=== PATIENT | male | born 1965 | race Caucasian/White ===

== ENCOUNTER 2017-10-19 14:38 | Inpatient (IN) | payer MEDICARE, OTHER ==
[2017-10-19 15:18] LABS: ADD MAN DIFF? NO
[2017-10-19 15:21] LABS: ABNORMAL IP MESSAGE 1; HEMOGLOBIN 14.5 g/dl (14.0-18.0); MEAN CORPUSCULAR HEMOGLOBIN 31.9 pg (29.0-33.0); POSITIVE DIFF @See below; RED BLOOD COUNT 4.55 10^6/ul (4.70-6.10); RED CELL DISTRIBUTION WIDTH 13.5 % (11.5-14.5)
[2017-10-19 15:34] LABS: HEMATOCRIT 41.2 % (42.0-52.0); MEAN CORPUSCULAR HGB CONC 35.2 g/dl (32.0-37.0); MEAN CORPUSCULAR VOLUME 90.5 fl (82.0-101.0); MEAN PLATELET VOLUME 11.1 fl (7.4-10.4); PLATELET COUNT 241 10^3/UL (140-415)
[2017-10-19 15:34] LABS: WHITE BLOOD COUNT 23.1 10^3/ul (4.8-10.8)
[2017-10-19 15:40] LABS: ALANINE AMINOTRANSFERASE 27 IU/L (13-69); ALBUMIN 4.6 g/dl (3.3-4.9); ALBUMIN/GLOBULIN RATIO 1.64; ALKALINE PHOSPHATASE 55 IU/L (42-121); ANION GAP 22 (8-16); ASPARTATE AMINO TRANSFERASE 24 IU/L (15-46); BILIRUBIN,INDIRECT 0.6 mg/dl (0-1.1); BILIRUBIN,TOTAL 0.6 mg/dl (0.2-1.3); BLOOD UREA NITROGEN 38 mg/dl (7-20); CALCIUM 11.6 mg/dl (8.4-10.2); CARBON DIOXIDE 24 mmol/L (21-31); CHLORIDE 100 mmol/L (97-110); CREATININE 3.43 mg/dl (0.61-1.24); GLUCOSE 148 mg/dl (70-220); LIPASE 25 U/L (23-300); POTASSIUM 3.3 mmol/L (3.5-5.1); SODIUM 143 mmol/L (135-144); TOTAL PROTEIN 7.4 g/dl (6.1-8.1)
[2017-10-19 15:52] LABS: TROPONIN-I < 0.012 ng/ml (0.00-0.12)
[2017-10-19] MEDS: ONDANSETRON 4 MG INJ IV (16:00)
[2017-10-19] MEDS: SOD CHLORIDE 0.9% 1,000 ML IV (16:00)
[2017-10-19 16:14] LABS: ANISOCYTOSIS 1+ (0-0); BAND NEUTROPHILS #M 1.1 10^3/ul (0.0-0.6); BAND NEUTROPHILS % (M) 5 % (0-4); GIANT THROMBO% (M) 1 % (0-0); LYMPHOCYTES #M 0.6 10^3/ul (0.8-2.9); LYMPHOCYTES % (M) 3 % (15-51); MICROCYTOSIS 1+ (0-0); MONOCYTE #M 2.7 10^3/ul (0.3-0.9); MONOCYTES % (M) 12 % (0-11); PLATELET ESTIMATE NORMAL; REACTIVE LYMPHOCYTES #M 1.1 10^3/ul (0.0-0.0); REACTIVE LYMPHOCYTES% (M) 5 % (0-0); SEG NEUT #M 17.6 10^3/ul (1.6-7.5); SEGMENTED NEUTROPHILS (M) % 75 % (39-77); SMUDGE%M 2 % (0-0)
[2017-10-19] MEDS: METOCLOPRAMIDE 10 MG INJ IV (17:11)
[2017-10-19] MEDS: LIDOCAINE/MYLANTA 40 ML BTL PO (19:45)
[2017-10-19] MEDS: MYCOPHENOLATE (SR) 180 MG TAB PO ×2 (21:30→23:07)
[2017-10-19] MEDS: TACROLIMUS 1 MG CAP PO ×2 (21:30→23:08)
[2017-10-19] MEDS: DEXTROSE 5%-0.9% NACL 1,000 ML IV (21:46)
[2017-10-20] MEDS: ALPRAZOLAM 0.5 MG TAB PO ×3 (00:06→22:40)
[2017-10-20] MEDS: PANTOPRAZOLE (EC) 40 MG TAB PO (05:21)
[2017-10-20 07:17] LABS: ADD MAN DIFF? NO
[2017-10-20 07:22] LABS: ABNORMAL IP MESSAGE 1; BASOPHIL # 0.1 10^3/ul (0.0-0.1); BASOPHILS % 0.3 % (0.0-2.0); EOSINOPHILS % 0.1 % (0.0-7.0); HEMATOCRIT 37.1 % (42.0-52.0); HEMOGLOBIN 12.9 g/dl (14.0-18.0); LYMPHOCYTES # 1.9 10^3/ul (0.8-2.9); MEAN CORPUSCULAR HGB CONC 34.8 g/dl (32.0-37.0); MEAN CORPUSCULAR VOLUME 92.1 fl (82.0-101.0); MEAN PLATELET VOLUME 11.2 fl (7.4-10.4); MONOCYTE # 1.7 10^3/ul (0.3-0.9); NEUTROPHIL # 13.5 10^3/ul (1.6-7.5); NEUTROPHILS % 78.1 % (39.0-77.0); PLATELET COUNT 198 10^3/UL (140-415); POSITIVE DIFF @See below; RED BLOOD COUNT 4.03 10^6/ul (4.70-6.10); RED CELL DISTRIBUTION WIDTH 13.5 % (11.5-14.5)
[2017-10-20 07:22] LABS: WHITE BLOOD COUNT 17.3 10^3/ul (4.8-10.8)
[2017-10-20 07:47] LABS: ANION GAP 12 (8-16); BLOOD UREA NITROGEN 30 mg/dl (7-20); CALCIUM 9.2 mg/dl (8.4-10.2); CARBON DIOXIDE 27 mmol/L (21-31); CHLORIDE 104 mmol/L (97-110); CREATININE 1.95 mg/dl (0.61-1.24); GLUCOSE 129 mg/dl (70-220); MAGNESIUM 1.3 mg/dl (1.7-2.5); PHOSPHORUS 2.9 mg/dl (2.5-4.9); POTASSIUM 3.1 mmol/L (3.5-5.1); SODIUM 140 mmol/L (135-144)
[2017-10-20] MEDS: DEXTROSE 5%-0.9% NACL 1,000 ML IV (08:59)
[2017-10-20] MEDS: predniSONE 5 MG TAB PO (09:00)
[2017-10-20] MEDS: AMLODIPINE 10 MG TAB PO (09:00)
[2017-10-20] MEDS: ASPIRIN (EC) 81 MG TAB PO (09:00)
[2017-10-20] MEDS: METOPROLOL 50 MG TAB PO ×2 (09:01→21:03)
[2017-10-20] MEDS: MYCOPHENOLATE (SR) 180 MG TAB PO ×2 (09:01→21:03)
[2017-10-20] MEDS: TACROLIMUS 1 MG CAP PO ×2 (09:01→21:03)
[2017-10-20] MEDS ORDERED: ONDANSETRON 4 MG INJ IV (10:00)
[2017-10-20] MEDS: POTASSIUM CHLORIDE (SR) 20 MEQ TAB PO (10:29)
[2017-10-20] MEDS: ONDANSETRON 4 MG INJ IV (11:07)
[2017-10-20] MEDS: CALCIUM CARBONATE 500 MG CHEW TAB PO ×2 (14:27→18:52)
[2017-10-20] MEDS: BISMUTH SUBSALICYLATE 120 ML BTL PO ×2 (16:07→22:41)
[2017-10-20] MEDS: CEFEPIME 1GM/50 ML (PMX) 50 ML IVPB (16:35)
[2017-10-20] MEDS: SOD CHLORIDE 0.9% 1,000 ML IV (16:35)
[2017-10-20] MEDS: MAGNESIUM SULFATE 2 GM/50 ML 50 ML IVPB (17:43)
[2017-10-20] MEDS ORDERED: VANCOMYCIN IV PER PHARMACY XX (18:00)
[2017-10-20 18:13] LABS: ADD UMIC NO; UR ASCORBIC ACID NEGATIVE (NEGATIVE); UR BILIRUBIN (Dip) NEGATIVE (NEGATIVE); UR BLOOD (Dip) NEGATIVE (NEGATIVE); UR CLARITY CLEAR (CLEAR); UR COLOR YELLOW (YELLOW); UR GLUCOSE (Dip) NEGATIVE (NEGATIVE); UR KETONES (Dip) NEGATIVE (NEGATIVE); UR LEUKOCYTE ESTERASE (Dip) NEGATIVE Leu/ul (NEGATIVE); UR NITRITE (Dip) NEGATIVE (NEGATIVE); UR SPECIFIC GRAVITY (Dip) 1.008 (1.003-1.030); UR TOTAL PROTEIN (Dip) NEGATIVE (NEGATIVE); UR UROBILINOGEN (Dip) NEGATIVE (NEGATIVE)
[2017-10-20 18:27] LABS: SODIUM,URINE RANDOM 30 mmol/L (30-90)
[2017-10-20 18:27] LABS: CREATININE,URINE RANDOM 77.44 mg/dl (20-370)
[2017-10-20 18:39] LABS: TROPONIN-I < 0.012 ng/ml (0.00-0.12)
[2017-10-20] MEDS: PANTOPRAZOLE 40 MG INJ IV (18:52)
[2017-10-20 19:44] LABS: LACTIC ACID 3.6 mmol/L (0.5-2.0)
[2017-10-20] MEDS: VANCOMYCIN 1.25 GM in SOD CHLORIDE 0.9% 250 ML IVPB (20:20)
[2017-10-20 21:21] LABS: LACTIC ACID 1.5 mmol/L (0.5-2.0)
[2017-10-21] MEDS: CEFEPIME 1GM/50 ML (PMX) 50 ML IVPB ×3 (01:18→20:33)
[2017-10-21] MEDS: CALCIUM CARBONATE 500 MG CHEW TAB PO (01:35)
[2017-10-21] MEDS: SOD CHLORIDE 0.9% 1,000 ML IV ×3 (02:30→22:30)
[2017-10-21] MEDS: PANTOPRAZOLE 40 MG INJ IV ×2 (06:15→20:32)
[2017-10-21 06:27] LABS: ADD MAN DIFF? NO
[2017-10-21 06:39] LABS: WHITE BLOOD COUNT 14.4 10^3/ul (4.8-10.8)
[2017-10-21 06:39] LABS: BASOPHIL # 0.1 10^3/ul (0.0-0.1); BASOPHILS % 0.3 % (0.0-2.0); EOSINOPHILS # 0.1 10^3/ul (0.0-0.5); EOSINOPHILS % 0.7 % (0.0-7.0); HEMATOCRIT 37.9 % (42.0-52.0); HEMOGLOBIN 13.3 g/dl (14.0-18.0); LYMPHOCYTES # 2.8 10^3/ul (0.8-2.9); LYMPHOCYTES % 19.2 % (15.0-51.0); MEAN CORPUSCULAR HEMOGLOBIN 32.1 pg (29.0-33.0); MEAN CORPUSCULAR HGB CONC 35.1 g/dl (32.0-37.0); MEAN CORPUSCULAR VOLUME 91.5 fl (82.0-101.0); MEAN PLATELET VOLUME 11.3 fl (7.4-10.4); MONOCYTE # 1.3 10^3/ul (0.3-0.9); MONOCYTES % 9.3 % (0.0-11.0); NEUTROPHIL # 10.1 10^3/ul (1.6-7.5); NEUTROPHILS % 70.1 % (39.0-77.0); PLATELET COUNT 192 10^3/UL (140-415); RED BLOOD COUNT 4.14 10^6/ul (4.70-6.10); RED CELL DISTRIBUTION WIDTH 13.5 % (11.5-14.5)
[2017-10-21 07:25] LABS: ANION GAP 15 (8-16); BLOOD UREA NITROGEN 26 mg/dl (7-20); CALCIUM 9.4 mg/dl (8.4-10.2); CARBON DIOXIDE 24 mmol/L (21-31); CHLORIDE 106 mmol/L (97-110); CREATININE 1.75 mg/dl (0.61-1.24); GLUCOSE 107 mg/dl (70-220); MAGNESIUM 1.9 mg/dl (1.7-2.5); PHOSPHORUS 2.8 mg/dl (2.5-4.9); POTASSIUM 3.7 mmol/L (3.5-5.1); SODIUM 141 mmol/L (135-144)
[2017-10-21] MEDS: TACROLIMUS 1 MG CAP PO ×2 (08:39→20:33)
[2017-10-21] MEDS: predniSONE 5 MG TAB PO (08:39)
[2017-10-21] MEDS: ASPIRIN (EC) 81 MG TAB PO (08:39)
[2017-10-21] MEDS: MYCOPHENOLATE (SR) 180 MG TAB PO ×2 (08:39→20:33)
[2017-10-21] MEDS: AMLODIPINE 10 MG TAB PO (08:40)
[2017-10-21] MEDS: METOPROLOL 50 MG TAB PO ×2 (08:40→20:34)
[2017-10-21] MEDS: VANCOMYCIN 500MG/NS (PMX) 100 ML IVPB (14:26)
[2017-10-21 14:46] LABS: CREATININE, RANDOM URINE 91 mg/dL (20-370); MICROALBUMIN/CREATININE RATIO 11 (<30)
[2017-10-21] MEDS ORDERED: VANCOMYCIN 1 GM 250 ML IVPB (15:00)
[2017-10-21] MEDS ORDERED: PROPOFOL 20 ML (17:16)
[2017-10-21] MEDS ORDERED: ONDANSETRON 4 MG INJ IV (17:30)
[2017-10-21] MEDS: METOCLOPRAMIDE 10 MG INJ IV (18:05)
[2017-10-21] MEDS: MIDAZOLAM 1 MG/ML 2 ML INJ (18:08)
[2017-10-21] MEDS: LIDOCAINE 2% (SDV) 5 ML INJ (18:09)
[2017-10-21] MEDS ORDERED: VANCOMYCIN 750 MG in DEXTROSE 5% 150 ML IVPB (20:00)
[2017-10-21] MEDS: ALPRAZOLAM 0.5 MG TAB PO (22:30)
[2017-10-22] MEDS: METOCLOPRAMIDE 10 MG INJ IV ×3 (00:12→11:34)
[2017-10-22] MEDS: VANCOMYCIN 500MG/NS (PMX) 100 ML IVPB (02:30)
[2017-10-22] MEDS: SOD CHLORIDE 0.9% 1,000 ML IV (02:35)
[2017-10-22] MEDS: PANTOPRAZOLE 40 MG INJ IV (05:20)
[2017-10-22 05:27] LABS: ADD MAN DIFF? NO
[2017-10-22 05:41] LABS: BASOPHIL # 0.1 10^3/ul (0.0-0.1); BASOPHILS % 0.5 % (0.0-2.0); EOSINOPHILS # 0.2 10^3/ul (0.0-0.5); EOSINOPHILS % 2.4 % (0.0-7.0); HEMATOCRIT 37.1 % (42.0-52.0); HEMOGLOBIN 12.6 g/dl (14.0-18.0); LYMPHOCYTES # 2.3 10^3/ul (0.8-2.9); LYMPHOCYTES % 24.9 % (15.0-51.0); MEAN CORPUSCULAR HEMOGLOBIN 31.5 pg (29.0-33.0); MEAN CORPUSCULAR VOLUME 92.8 fl (82.0-101.0); MEAN PLATELET VOLUME 11.4 fl (7.4-10.4); MONOCYTE # 0.9 10^3/ul (0.3-0.9); MONOCYTES % 10.2 % (0.0-11.0); NEUTROPHIL # 5.7 10^3/ul (1.6-7.5); NEUTROPHILS % 61.7 % (39.0-77.0); PLATELET COUNT 176 10^3/UL (140-415); RED CELL DISTRIBUTION WIDTH 13.6 % (11.5-14.5)
[2017-10-22 05:41] LABS: WHITE BLOOD COUNT 9.2 10^3/ul (4.8-10.8)
[2017-10-22 06:11] LABS: ANION GAP 15 (8-16); BLOOD UREA NITROGEN 20 mg/dl (7-20); CALCIUM 8.2 mg/dl (8.4-10.2); CARBON DIOXIDE 24 mmol/L (21-31); CHLORIDE 109 mmol/L (97-110); CREATININE 1.16 mg/dl (0.61-1.24); GLUCOSE 88 mg/dl (70-220); MAGNESIUM 1.7 mg/dl (1.7-2.5); PHOSPHORUS 2.3 mg/dl (2.5-4.9); POTASSIUM 3.3 mmol/L (3.5-5.1); SODIUM 145 mmol/L (135-144)
[2017-10-22] MEDS: CEFEPIME 1GM/50 ML (PMX) 50 ML IVPB (08:44)
[2017-10-22] MEDS: METOPROLOL 50 MG TAB PO (08:45)
[2017-10-22] MEDS: ASPIRIN (EC) 81 MG TAB PO (08:45)
[2017-10-22] MEDS: TACROLIMUS 1 MG CAP PO (08:45)
[2017-10-22] MEDS: predniSONE 5 MG TAB PO (08:45)
[2017-10-22] MEDS: AMLODIPINE 10 MG TAB PO (08:45)
[2017-10-22] MEDS: MYCOPHENOLATE (SR) 180 MG TAB PO (08:48)
[2017-10-23 17:11] LABS: PROCALCITONIN <0.10 ng/mL (<0.10)
== END 2017-10-22 12:00 | disposition home or self-care (01) | DRG 872 ==
LOC: E/R 14:38 → PP2 20:11
DX: A41.9 Sepsis, unspecified organism (principal); T86.12 Kidney transplant failure; N17.9 Acute kidney failure, unspecified; K20.9 Esophagitis, unspecified; R65.10 Systemic inflammatory response syndrome (SIRS) of non-infectious origin without acute organ dysfunction; K29.70 Gastritis, unspecified, without bleeding; E86.0 Dehydration; E87.6 Hypokalemia
CPT/HCPCS: 36415; 71045; 74176; 80048; 80053; 81003; 82043; 83605; 83690; 83735; 84100; 84145; 84155; 84300; 84484; 85025; 87040; 87086; 88305; 88312; 88313; 93005; 96374; 96375; 99285-25

== ENCOUNTER 2017-11-16 14:06 | Emergency (ER) | payer MEDICARE, OTHER ==
[2017-11-16 18:44] LABS: ADD MAN DIFF? NO
[2017-11-16 18:47] LABS: WHITE BLOOD COUNT 8.4 10^3/ul (4.8-10.8)
[2017-11-16 18:47] LABS: BASOPHIL # 0.1 10^3/ul (0.0-0.1); BASOPHILS % 0.6 % (0.0-2.0); EOSINOPHILS # 0.3 10^3/ul (0.0-0.5); HEMATOCRIT 39.5 % (42.0-52.0); HEMOGLOBIN 13.6 g/dl (14.0-18.0); LYMPHOCYTES # 2.1 10^3/ul (0.8-2.9); LYMPHOCYTES % 25.1 % (15.0-51.0); MEAN CORPUSCULAR HEMOGLOBIN 31.5 pg (29.0-33.0); MEAN CORPUSCULAR HGB CONC 34.4 g/dl (32.0-37.0); MEAN CORPUSCULAR VOLUME 91.4 fl (82.0-101.0); MEAN PLATELET VOLUME 11.2 fl (7.4-10.4); MONOCYTE # 0.8 10^3/ul (0.3-0.9); NEUTROPHIL # 5.1 10^3/ul (1.6-7.5); NEUTROPHILS % 60.8 % (39.0-77.0); PLATELET COUNT 223 10^3/UL (140-415); RED BLOOD COUNT 4.32 10^6/ul (4.70-6.10); RED CELL DISTRIBUTION WIDTH 13.2 % (11.5-14.5)
[2017-11-16 19:04] LABS: ALANINE AMINOTRANSFERASE 26 IU/L (13-69); ALBUMIN 3.7 g/dl (3.3-4.9); ALBUMIN/GLOBULIN RATIO 1.37; ALKALINE PHOSPHATASE 56 IU/L (42-121); ANION GAP 18 (8-16); ASPARTATE AMINO TRANSFERASE 18 IU/L (15-46); BILIRUBIN,INDIRECT 0.6 mg/dl (0-1.1); BILIRUBIN,TOTAL 0.6 mg/dl (0.2-1.3); BLOOD UREA NITROGEN 18 mg/dl (7-20); CARBON DIOXIDE 24 mmol/L (21-31); CHLORIDE 107 mmol/L (97-110); CREATININE 1.32 mg/dl (0.61-1.24); GLUCOSE 92 mg/dl (70-220); POTASSIUM 3.4 mmol/L (3.5-5.1); SODIUM 146 mmol/L (135-144); TOTAL PROTEIN 6.4 g/dl (6.1-8.1)
[2017-11-16] MEDS: SOD CHLORIDE 0.9% 1,000 ML IV (19:12)
[2017-11-16] MEDS: IPRATROPIUM (NEB) 0.5 MG/2.5 ML AMP NEB ×2 (19:23→20:14)
[2017-11-16] MEDS: ALBUTEROL 0.083% (NEB) 2.5 MG/3 ML AMP NEB ×2 (19:23→20:14)
[2017-11-16] MEDS: METHYLPREDNISOLONE 125 MG INJ IV (20:13)
== END 2017-11-16 20:52 | disposition home or self-care (01) ==
LOC: E/R 14:06
DX: J20.9 Acute bronchitis, unspecified (principal); E10.9 Type 1 diabetes mellitus without complications; Z79.82 Long term (current) use of aspirin
CPT/HCPCS: 71045; 80053; 85025; 94640; 94664; 96374; 99284-25

== ENCOUNTER 2018-01-05 12:47 | Inpatient (IN) | payer MEDICARE, OTHER ==
[2018-01-05] MEDS ORDERED: ONDANSETRON 4 MG INJ (13:40)
[2018-01-05] MEDS: SOD CHLORIDE 0.9% 1,000 ML IV ×2 (13:45→16:02)
[2018-01-05] MEDS: ONDANSETRON 4 MG INJ IV ×3 (13:45→23:06)
[2018-01-05 13:57] LABS: ADD MAN DIFF? NO
[2018-01-05 14:00] LABS: WHITE BLOOD COUNT 20.5 10^3/ul (4.8-10.8)
[2018-01-05 14:00] LABS: ABNORMAL IP MESSAGE 1; BASOPHIL # 0.1 10^3/ul (0.0-0.1); BASOPHILS % 0.3 % (0.0-2.0); HEMATOCRIT 44.4 % (42.0-52.0); LYMPHOCYTES # 2.9 10^3/ul (0.8-2.9); MEAN CORPUSCULAR HEMOGLOBIN 32.3 pg (29.0-33.0); MEAN CORPUSCULAR HGB CONC 33.8 g/dl (32.0-37.0); MEAN CORPUSCULAR VOLUME 95.7 fl (82.0-101.0); MONOCYTES % 9.7 % (0.0-11.0); NEUTROPHIL # 15.5 10^3/ul (1.6-7.5); NEUTROPHILS % 75.6 % (39.0-77.0); PLATELET COUNT 227 10^3/UL (140-415); POSITIVE DIFF @See below; RED BLOOD COUNT 4.64 10^6/ul (4.70-6.10); RED CELL DISTRIBUTION WIDTH 14.1 % (11.5-14.5)
[2018-01-05 14:21] LABS: ALANINE AMINOTRANSFERASE 10 IU/L (13-69); ALBUMIN 4.7 g/dl (3.3-4.9); ALBUMIN/GLOBULIN RATIO 1.42; ALKALINE PHOSPHATASE 69 IU/L (42-121); ANION GAP 23 (8-16); ASPARTATE AMINO TRANSFERASE 22 IU/L (15-46); BILIRUBIN,INDIRECT 1.2 mg/dl (0-1.1); BILIRUBIN,TOTAL 1.2 mg/dl (0.2-1.3); BLOOD UREA NITROGEN 34 mg/dl (7-20); CALCIUM 10.6 mg/dl (8.4-10.2); CARBON DIOXIDE 21 mmol/L (21-31); CHLORIDE 101 mmol/L (97-110); CREATININE 2.64 mg/dl (0.61-1.24); GLUCOSE 156 mg/dl (70-220); LIPASE 18 U/L (23-300); SODIUM 141 mmol/L (135-144)
[2018-01-05 14:40] LABS: TROPONIN-I < 0.012 ng/ml (0.00-0.12)
[2018-01-05] MEDS ORDERED: ALBUTEROL HFA 8 GM INHALER INH ×2 (15:00)
[2018-01-05] MEDS: PROCHLORPERAZINE 10 MG INJ IV (16:32)
[2018-01-05] MEDS: METOCLOPRAMIDE 5 MG TAB PO (18:35)
[2018-01-05] MEDS: PANTOPRAZOLE 40 MG INJ IV (18:35)
[2018-01-05] MEDS: PANTOPRAZOLE (EC) 40 MG TAB PO (18:35)
[2018-01-05 20:11] LABS: LACTIC ACID 1.7 mmol/L (0.5-2.0)
[2018-01-05 20:24] LABS: TROPONIN-I < 0.012 ng/ml (0.00-0.12)
[2018-01-05] MEDS: METOPROLOL 50 MG TAB PO (21:28)
[2018-01-05] MEDS: TACROLIMUS 1 MG CAP PO (21:29)
[2018-01-05] MEDS: MYCOPHENOLATE (SR) 180 MG TAB PO (21:29)
[2018-01-05] MEDS: ALPRAZOLAM 1 MG TAB PO (23:10)
[2018-01-06] MEDS: PANTOPRAZOLE 40 MG INJ IV ×2 (05:09→17:22)
[2018-01-06] MEDS: SOD CHLORIDE 0.9% 1,000 ML IV ×2 (05:10→17:22)
[2018-01-06 07:54] LABS: ADD MAN DIFF? NO
[2018-01-06 07:55] LABS: WHITE BLOOD COUNT 17.4 10^3/ul (4.8-10.8)
[2018-01-06 07:55] LABS: ABNORMAL IP MESSAGE 1; BASOPHIL # 0.1 10^3/ul (0.0-0.1); BASOPHILS % 0.3 % (0.0-2.0); HEMATOCRIT 39.9 % (42.0-52.0); HEMOGLOBIN 13.2 g/dl (14.0-18.0); LYMPHOCYTES % 11.7 % (15.0-51.0); MEAN CORPUSCULAR HEMOGLOBIN 31.9 pg (29.0-33.0); MEAN CORPUSCULAR HGB CONC 33.1 g/dl (32.0-37.0); MEAN CORPUSCULAR VOLUME 96.4 fl (82.0-101.0); MEAN PLATELET VOLUME 11.6 fl (7.4-10.4); MONOCYTE # 1.8 10^3/ul (0.3-0.9); MONOCYTES % 10.3 % (0.0-11.0); NEUTROPHIL # 13.4 10^3/ul (1.6-7.5); NEUTROPHILS % 77.1 % (39.0-77.0); PLATELET COUNT 182 10^3/UL (140-415); POSITIVE DIFF @See below; RED BLOOD COUNT 4.14 10^6/ul (4.70-6.10); RED CELL DISTRIBUTION WIDTH 14.3 % (11.5-14.5)
[2018-01-06] MEDS: METOCLOPRAMIDE 5 MG TAB PO ×3 (08:18→17:17)
[2018-01-06] MEDS: ASPIRIN (EC) 81 MG TAB PO (08:18)
[2018-01-06] MEDS: TACROLIMUS 1 MG CAP PO ×2 (08:19→21:00)
[2018-01-06] MEDS: METOPROLOL 50 MG TAB PO ×2 (08:19→21:01)
[2018-01-06] MEDS: predniSONE 5 MG TAB PO (08:19)
[2018-01-06] MEDS: MYCOPHENOLATE (SR) 180 MG TAB PO ×2 (08:19→21:00)
[2018-01-06] MEDS: AMLODIPINE 10 MG TAB PO (08:19)
[2018-01-06 08:35] LABS: ANION GAP 13 (8-16); BLOOD UREA NITROGEN 32 mg/dl (7-20); CALCIUM 9.1 mg/dl (8.4-10.2); CARBON DIOXIDE 25 mmol/L (21-31); CHLORIDE 108 mmol/L (97-110); CREATININE 1.89 mg/dl (0.61-1.24); GLUCOSE 95 mg/dl (70-220); MAGNESIUM 1.7 mg/dl (1.7-2.5); PHOSPHORUS 3.7 mg/dl (2.5-4.9); POTASSIUM 3.5 mmol/L (3.5-5.1); SODIUM 142 mmol/L (135-144)
[2018-01-06] MEDS: SUCRALFATE (100 MG/ML) 10ML CUP PO ×2 (17:17→21:01)
[2018-01-06] MEDS: ALPRAZOLAM 1 MG TAB PO (21:00)
[2018-01-07] MEDS: SOD CHLORIDE 0.9% 1,000 ML IV (06:26)
[2018-01-07] MEDS: PANTOPRAZOLE 40 MG INJ IV (06:26)
[2018-01-07] MEDS: METOCLOPRAMIDE 5 MG TAB PO ×2 (06:26→11:52)
[2018-01-07 06:48] LABS: ADD MAN DIFF? NO
[2018-01-07 06:55] LABS: BASOPHILS % 0.3 % (0.0-2.0); EOSINOPHILS % 0.4 % (0.0-7.0); HEMATOCRIT 38.2 % (42.0-52.0); HEMOGLOBIN 12.6 g/dl (14.0-18.0); LYMPHOCYTES # 1.4 10^3/ul (0.8-2.9); LYMPHOCYTES % 15.4 % (15.0-51.0); MEAN CORPUSCULAR HEMOGLOBIN 31.7 pg (29.0-33.0); MEAN CORPUSCULAR VOLUME 96.2 fl (82.0-101.0); MEAN PLATELET VOLUME 11.4 fl (7.4-10.4); MONOCYTE # 0.9 10^3/ul (0.3-0.9); MONOCYTES % 9.8 % (0.0-11.0); NEUTROPHIL # 6.7 10^3/ul (1.6-7.5); NEUTROPHILS % 73.7 % (39.0-77.0); PLATELET COUNT 158 10^3/UL (140-415); RED BLOOD COUNT 3.97 10^6/ul (4.70-6.10); RED CELL DISTRIBUTION WIDTH 13.8 % (11.5-14.5)
[2018-01-07 06:55] LABS: WHITE BLOOD COUNT 9.1 10^3/ul (4.8-10.8)
[2018-01-07 07:14] LABS: ANION GAP 14 (8-16); BLOOD UREA NITROGEN 23 mg/dl (7-20); CALCIUM 8.3 mg/dl (8.4-10.2); CARBON DIOXIDE 25 mmol/L (21-31); CHLORIDE 105 mmol/L (97-110); CREATININE 1.24 mg/dl (0.61-1.24); GLUCOSE 94 mg/dl (70-220); MAGNESIUM 1.5 mg/dl (1.7-2.5); PHOSPHORUS 2.6 mg/dl (2.5-4.9); POTASSIUM 3.2 mmol/L (3.5-5.1); SODIUM 141 mmol/L (135-144)
[2018-01-07] MEDS: MYCOPHENOLATE (SR) 180 MG TAB PO (08:22)
[2018-01-07] MEDS: SUCRALFATE (100 MG/ML) 10ML CUP PO ×2 (08:22→12:49)
[2018-01-07] MEDS: TACROLIMUS 1 MG CAP PO (08:23)
[2018-01-07] MEDS: ASPIRIN (EC) 81 MG TAB PO (08:23)
[2018-01-07] MEDS: METOPROLOL 50 MG TAB PO (08:24)
[2018-01-07] MEDS: AMLODIPINE 10 MG TAB PO (08:24)
[2018-01-07] MEDS: predniSONE 5 MG TAB PO (08:24)
[2018-01-07] MEDS: MAGNESIUM SULFATE 1 GM/D5W 100 ML IVPB (10:19)
[2018-01-07] MEDS: POTASSIUM BICARBONATE 25 MEQ TAB PO (10:19)
[2018-01-11 13:26] LABS: PROCALCITONIN <0.10 ng/mL (<0.10)
== END 2018-01-07 14:02 | disposition home or self-care (01) | DRG 380 ==
LOC: E/R 12:47 → TEL 15:09
DX: K22.10 Ulcer of esophagus without bleeding (principal); R65.11 Systemic inflammatory response syndrome (SIRS) of non-infectious origin with acute organ dysfunction; N17.9 Acute kidney failure, unspecified; T86.12 Kidney transplant failure; Z94.83 Pancreas transplant status; I48.0 Paroxysmal atrial fibrillation; I12.9 Hypertensive chronic kidney disease with stage 1 through stage 4 chronic kidney disease, or unspecified chronic kidney disease; N18.9 Chronic kidney disease, unspecified; F41.9 Anxiety disorder, unspecified; R07.89 Other chest pain; R12 Heartburn; Z87.442 Personal history of urinary calculi; Z79.899 Other long term (current) drug therapy; Z79.52 Long term (current) use of systemic steroids
CPT/HCPCS: 36415; 71045; 74176; 80048; 80053; 83605; 83690; 83735; 84100; 84145; 84484; 85025; 87040; 93005; 96374; 96375; 99285-25

== ENCOUNTER 2018-03-29 11:52 | Inpatient (IN) | payer MEDICARE, OTHER ==
[2018-03-29] MEDS: SOD CHLORIDE 0.9% 1,000 ML IV ×2 (12:18→22:57)
[2018-03-29] MEDS: LACTATED RINGER'S 1,000 ML IV ×2 (12:46→18:18)
[2018-03-29] MEDS: ONDANSETRON 4 MG INJ IV (12:46)
[2018-03-29 12:51] LABS: ADD MAN DIFF? NO
[2018-03-29 13:01] LABS: BASOPHIL # 0.1 10^3/ul (0.0-0.1); BASOPHILS % 0.6 % (0.0-2.0); EOSINOPHILS # 0.1 10^3/ul (0.0-0.5); EOSINOPHILS % 0.5 % (0.0-7.0); HEMOGLOBIN 16.3 g/dl (14.0-18.0); LYMPHOCYTES # 2.5 10^3/ul (0.8-2.9); LYMPHOCYTES % 17.4 % (15.0-51.0); MEAN CORPUSCULAR HEMOGLOBIN 30.6 pg (29.0-33.0); MEAN CORPUSCULAR HGB CONC 32.6 g/dl (32.0-37.0); MEAN CORPUSCULAR VOLUME 93.8 fl (82.0-101.0); MEAN PLATELET VOLUME 11.5 fl (7.4-10.4); MONOCYTE # 1.2 10^3/ul (0.3-0.9); MONOCYTES % 8.1 % (0.0-11.0); NEUTROPHIL # 10.5 10^3/ul (1.6-7.5); PLATELET COUNT 235 10^3/UL (140-415); RED BLOOD COUNT 5.33 10^6/ul (4.70-6.10); RED CELL DISTRIBUTION WIDTH 13.8 % (11.5-14.5)
[2018-03-29 13:01] LABS: WHITE BLOOD COUNT 14.4 10^3/ul (4.8-10.8)
[2018-03-29] MEDS: PROCHLORPERAZINE 10 MG INJ IV (13:15)
[2018-03-29 13:16] LABS: ALANINE AMINOTRANSFERASE 17 IU/L (13-69); ALBUMIN 4.7 g/dl (3.3-4.9); ALBUMIN/GLOBULIN RATIO 1.56; ALKALINE PHOSPHATASE 68 IU/L (42-121); ANION GAP 15 (8-16); ASPARTATE AMINO TRANSFERASE 19 IU/L (15-46); BILIRUBIN,INDIRECT 0.6 mg/dl (0-1.1); BILIRUBIN,TOTAL 0.6 mg/dl (0.2-1.3); BLOOD UREA NITROGEN 22 mg/dl (7-20); CALCIUM 10.6 mg/dl (8.4-10.2); CARBON DIOXIDE 25 mmol/L (21-31); CHLORIDE 108 mmol/L (97-110); CREATININE 1.76 mg/dl (0.61-1.24); GLUCOSE 183 mg/dl (70-220); LIPASE 32 U/L (23-300); POTASSIUM 4.3 mmol/L (3.5-5.1); SODIUM 144 mmol/L (135-144); TOTAL PROTEIN 7.7 g/dl (6.1-8.1)
[2018-03-29] MEDS ORDERED: HALOPERIDOL 5 MG INJ (13:44)
[2018-03-29 13:48] LABS: TROPONIN-I < 0.010 ng/ml (0.000-0.120)
[2018-03-29] MEDS ORDERED: HALOPERIDOL 5 MG INJ IV (14:00)
[2018-03-29] MEDS: HALOPERIDOL 5 MG INJ IV (14:14)
[2018-03-29] MEDS: HALOPERIDOL 5 MG INJ IM (14:17)
[2018-03-29] MEDS ORDERED: ONDANSETRON 4 MG INJ IV (15:30)
[2018-03-29] MEDS: METOPROLOL 50 MG TAB PO ×3 (15:42→22:56)
[2018-03-29 16:18] LABS: LACTIC ACID 1.5 mmol/L (0.5-2.0)
[2018-03-29 18:05] LABS: ADD UMIC NO; UR ASCORBIC ACID NEGATIVE (NEGATIVE); UR BILIRUBIN (Dip) NEGATIVE (NEGATIVE); UR BLOOD (Dip) NEGATIVE (NEGATIVE); UR CLARITY CLEAR (CLEAR); UR COLOR YELLOW (YELLOW); UR GLUCOSE (Dip) 1+ mg/dL (NEGATIVE); UR KETONES (Dip) TRACE mg/dL (NEGATIVE); UR LEUKOCYTE ESTERASE (Dip) NEGATIVE Leu/ul (NEGATIVE); UR NITRITE (Dip) NEGATIVE (NEGATIVE); UR TOTAL PROTEIN (Dip) NEGATIVE (NEGATIVE); UR UROBILINOGEN (Dip) NEGATIVE (NEGATIVE)
[2018-03-29] MEDS: PANTOPRAZOLE (EC) 40 MG TAB PO (18:14)
[2018-03-29] MEDS: METOCLOPRAMIDE 10 MG INJ IV (18:14)
[2018-03-29 18:25] LABS: CREATININE,URINE RANDOM 68.64 mg/dl (20-370)
[2018-03-29 18:27] LABS: AMPHETAMINE/METHAMPHETAMINE Negative (NEGATIVE); BARBITURATES Negative (NEGATIVE); CANNABINOIDS Positive (NEGATIVE); COCAINE Negative (NEGATIVE); OPIATES Negative (NEGATIVE)
[2018-03-29 18:28] LABS: BENZODIAZEPINES Positive (NEGATIVE)
[2018-03-29 18:28] LABS: SODIUM,URINE RANDOM 111 mmol/L (30-90)
[2018-03-29] MEDS: SUCRALFATE (100 MG/ML) 10ML CUP PO ×2 (20:36→22:55)
[2018-03-29] MEDS: TACROLIMUS 1 MG CAP PO (21:00)
[2018-03-29] MEDS: ALPRAZOLAM 1 MG TAB PO (22:55)
[2018-03-30] MEDS: METOCLOPRAMIDE 10 MG INJ IV ×4 (00:30→17:31)
[2018-03-30] MEDS: MYCOPHENOLATE (SR) 180 MG TAB PO ×4 (01:28→22:25)
[2018-03-30] MEDS: SOD CHLORIDE 0.9% 1,000 ML IV ×4 (03:20→22:26)
[2018-03-30 05:42] LABS: ADD MAN DIFF? NO
[2018-03-30 05:58] LABS: BASOPHIL # 0.1 10^3/ul (0.0-0.1); BASOPHILS % 0.3 % (0.0-2.0); HEMATOCRIT 42.6 % (42.0-52.0); HEMOGLOBIN 13.9 g/dl (14.0-18.0); LYMPHOCYTES # 2.2 10^3/ul (0.8-2.9); LYMPHOCYTES % 12.4 % (15.0-51.0); MEAN CORPUSCULAR HEMOGLOBIN 30.9 pg (29.0-33.0); MEAN CORPUSCULAR HGB CONC 32.6 g/dl (32.0-37.0); MEAN CORPUSCULAR VOLUME 94.7 fl (82.0-101.0); MEAN PLATELET VOLUME 11.7 fl (7.4-10.4); MONOCYTE # 1.5 10^3/ul (0.3-0.9); MONOCYTES % 8.3 % (0.0-11.0); NEUTROPHILS % 78.5 % (39.0-77.0); PLATELET COUNT 202 10^3/UL (140-415)
[2018-03-30 05:58] LABS: WHITE BLOOD COUNT 17.8 10^3/ul (4.8-10.8)
[2018-03-30] MEDS: PANTOPRAZOLE (EC) 40 MG TAB PO ×2 (06:04→17:31)
[2018-03-30 06:29] LABS: ANION GAP 15 (8-16); BLOOD UREA NITROGEN 18 mg/dl (7-20); CALCIUM 9.3 mg/dl (8.4-10.2); CARBON DIOXIDE 24 mmol/L (21-31); CHLORIDE 107 mmol/L (97-110); CREATININE 1.25 mg/dl (0.61-1.24); GLUCOSE 120 mg/dl (70-220); MAGNESIUM 1.3 mg/dl (1.7-2.5); PHOSPHORUS 2.9 mg/dl (2.5-4.9); SODIUM 142 mmol/L (135-144)
[2018-03-30] MEDS: SUCRALFATE (100 MG/ML) 10ML CUP PO ×4 (09:10→22:25)
[2018-03-30] MEDS: TACROLIMUS 1 MG CAP PO ×2 (09:11→22:25)
[2018-03-30] MEDS: METOPROLOL 50 MG TAB PO ×2 (09:11→22:26)
[2018-03-30] MEDS: DIGOXIN 500 MCG INJ IV ×2 (09:12→16:03)
[2018-03-30] MEDS: AMLODIPINE 10 MG TAB PO (09:12)
[2018-03-30] MEDS: predniSONE 5 MG TAB PO (09:12)
[2018-03-30] MEDS: MAGNESIUM SULFATE 2 GM/50 ML 50 ML IVPB (10:19)
[2018-03-30] MEDS ORDERED: morphine 2 MG INJ (10:42)
[2018-03-30] MEDS: morphine 2 MG INJ IV (10:45)
[2018-03-30] MEDS: DILTIAZEM 25 MG INJ IV (10:55)
[2018-03-30] MEDS ORDERED: DILTIAZEM 25 MG INJ IV (11:00)
[2018-03-30] MEDS: DILTIAZEM-D5W 125MG/125ML DRIP 125 ML IV ×3 (11:37→13:22)
[2018-03-30 13:13] LABS: TROPONIN-I 0.024 ng/ml (0.000-0.120)
[2018-03-30] MEDS: LIDOCAINE 1% (MPF) 5 ML VIAL SC (15:00)
[2018-03-30] MEDS: DILTIAZEM 60 MG TAB PO ×2 (16:03→17:07)
[2018-03-30] MEDS: MAGNESIUM SULFATE 3 GM in DEXTROSE 5% 100 ML IVPB (16:41)
[2018-03-30 17:59] LABS: TROPONIN-I 0.038 ng/ml (0.000-0.120)
[2018-03-31] MEDS: DILTIAZEM 60 MG TAB PO ×2 (00:46→06:34)
[2018-03-31] MEDS: METOCLOPRAMIDE 10 MG INJ IV ×5 (00:46→23:38)
[2018-03-31] MEDS: SOD CHLORIDE 0.9% 1,000 ML IV ×4 (06:00→16:04)
[2018-03-31 06:12] LABS: ADD MAN DIFF? NO
[2018-03-31 06:19] LABS: WHITE BLOOD COUNT 14.8 10^3/ul (4.8-10.8)
[2018-03-31 06:19] LABS: BASOPHILS % 0.2 % (0.0-2.0); EOSINOPHILS % 0.1 % (0.0-7.0); HEMATOCRIT 41.2 % (42.0-52.0); HEMOGLOBIN 13.7 g/dl (14.0-18.0); LYMPHOCYTES # 1.6 10^3/ul (0.8-2.9); LYMPHOCYTES % 10.7 % (15.0-51.0); MEAN CORPUSCULAR HEMOGLOBIN 31.3 pg (29.0-33.0); MEAN CORPUSCULAR HGB CONC 33.3 g/dl (32.0-37.0); MEAN CORPUSCULAR VOLUME 94.1 fl (82.0-101.0); MEAN PLATELET VOLUME 11.2 fl (7.4-10.4); MONOCYTE # 1.3 10^3/ul (0.3-0.9); MONOCYTES % 8.5 % (0.0-11.0); NEUTROPHIL # 11.9 10^3/ul (1.6-7.5); NEUTROPHILS % 80.1 % (39.0-77.0); PLATELET COUNT 186 10^3/UL (140-415); RED BLOOD COUNT 4.38 10^6/ul (4.70-6.10); RED CELL DISTRIBUTION WIDTH 13.7 % (11.5-14.5)
[2018-03-31] MEDS: PANTOPRAZOLE (EC) 40 MG TAB PO ×2 (06:34→17:13)
[2018-03-31 06:47] LABS: ANION GAP 12 (8-16); BLOOD UREA NITROGEN 15 mg/dl (7-20); CALCIUM 8.3 mg/dl (8.4-10.2); CARBON DIOXIDE 25 mmol/L (21-31); CHLORIDE 104 mmol/L (97-110); CREATININE 1.08 mg/dl (0.61-1.24); GLUCOSE 107 mg/dl (70-220); MAGNESIUM 1.9 mg/dl (1.7-2.5); PHOSPHORUS 2.2 mg/dl (2.5-4.9); SODIUM 138 mmol/L (135-144)
[2018-03-31] MEDS: MYCOPHENOLATE (SR) 180 MG TAB PO ×2 (08:28→21:57)
[2018-03-31] MEDS: POTASSIUM CHLORIDE (SR) 20 MEQ TAB PO (08:28)
[2018-03-31] MEDS: AMLODIPINE 10 MG TAB PO (08:30)
[2018-03-31] MEDS: METOPROLOL 50 MG TAB PO (08:30)
[2018-03-31] MEDS: predniSONE 5 MG TAB PO (08:30)
[2018-03-31] MEDS: TACROLIMUS 1 MG CAP PO (08:31)
[2018-03-31] MEDS: SUCRALFATE (100 MG/ML) 10ML CUP PO ×4 (09:00→21:57)
[2018-03-31] MEDS: MAGNESIUM SULFATE 2 GM/50 ML 50 ML IVPB (09:54)
[2018-03-31] MEDS: DILTIAZEM (CD) 120 MG CAP PO ×2 (12:22→22:49)
[2018-03-31] MEDS ORDERED: TACROLIMUS 0.5 MG CAP PO (21:34)
[2018-03-31] MEDS: TACROLIMUS 0.5 MG CAP PO (21:58)
[2018-04-01] MEDS: PANTOPRAZOLE (EC) 40 MG TAB PO ×2 (05:56→17:31)
[2018-04-01] MEDS: METOCLOPRAMIDE 10 MG INJ IV ×4 (05:56→23:08)
[2018-04-01 06:24] LABS: ADD MAN DIFF? NO
[2018-04-01 06:32] LABS: WHITE BLOOD COUNT 11.3 10^3/ul (4.8-10.8)
[2018-04-01 06:32] LABS: BASOPHILS % 0.3 % (0.0-2.0); EOSINOPHILS % 0.2 % (0.0-7.0); HEMATOCRIT 41.1 % (42.0-52.0); HEMOGLOBIN 13.5 g/dl (14.0-18.0); LYMPHOCYTES # 1.5 10^3/ul (0.8-2.9); LYMPHOCYTES % 13.2 % (15.0-51.0); MEAN CORPUSCULAR HEMOGLOBIN 30.5 pg (29.0-33.0); MEAN CORPUSCULAR HGB CONC 32.8 g/dl (32.0-37.0); MEAN CORPUSCULAR VOLUME 92.8 fl (82.0-101.0); MEAN PLATELET VOLUME 11.4 fl (7.4-10.4); MONOCYTE # 1.3 10^3/ul (0.3-0.9); MONOCYTES % 11.8 % (0.0-11.0); NEUTROPHIL # 8.4 10^3/ul (1.6-7.5); PLATELET COUNT 169 10^3/UL (140-415); RED BLOOD COUNT 4.43 10^6/ul (4.70-6.10); RED CELL DISTRIBUTION WIDTH 13.6 % (11.5-14.5)
[2018-04-01 07:59] LABS: ANION GAP 11 (8-16); BLOOD UREA NITROGEN 12 mg/dl (7-20); CALCIUM 8.3 mg/dl (8.4-10.2); CARBON DIOXIDE 25 mmol/L (21-31); CHLORIDE 104 mmol/L (97-110); CREATININE 1.11 mg/dl (0.61-1.24); GLUCOSE 104 mg/dl (70-220); MAGNESIUM 1.7 mg/dl (1.7-2.5); SODIUM 137 mmol/L (135-144)
[2018-04-01 08:03] LABS: POTASSIUM 2.9 mmol/L (3.5-5.1)
[2018-04-01] MEDS ORDERED: SUCRALFATE (100 MG/ML) 10ML CUP PO (09:00)
[2018-04-01] MEDS: SUCRALFATE (100 MG/ML) 10ML CUP PO ×4 (09:45→20:40)
[2018-04-01] MEDS: NEUTRA-PHOS 250 MG PACKET PO (09:45)
[2018-04-01] MEDS: TACROLIMUS 0.5 MG CAP PO ×2 (09:46→20:40)
[2018-04-01] MEDS: POTASSIUM CHLORIDE (SR) 20 MEQ TAB PO (09:46)
[2018-04-01] MEDS: MYCOPHENOLATE (SR) 180 MG TAB PO ×2 (09:46→20:40)
[2018-04-01] MEDS: DILTIAZEM (CD) 120 MG CAP PO ×2 (09:47→20:40)
[2018-04-01] MEDS: AMLODIPINE 5 MG TAB PO (09:47)
[2018-04-01] MEDS: predniSONE 5 MG TAB PO (09:48)
[2018-04-01] MEDS: MAGNESIUM SULFATE 3 GM in DEXTROSE 5% 100 ML IVPB (12:05)
[2018-04-02] MEDS: METOCLOPRAMIDE 10 MG INJ IV ×2 (05:59→12:18)
[2018-04-02] MEDS: PANTOPRAZOLE (EC) 40 MG TAB PO (05:59)
[2018-04-02 06:38] LABS: ADD MAN DIFF? NO
[2018-04-02 06:48] LABS: BASOPHILS % 0.4 % (0.0-2.0); EOSINOPHILS % 0.4 % (0.0-7.0); HEMATOCRIT 42.8 % (42.0-52.0); HEMOGLOBIN 14.2 g/dl (14.0-18.0); LYMPHOCYTES # 2.3 10^3/ul (0.8-2.9); MEAN CORPUSCULAR HEMOGLOBIN 30.7 pg (29.0-33.0); MEAN CORPUSCULAR HGB CONC 33.2 g/dl (32.0-37.0); MEAN CORPUSCULAR VOLUME 92.4 fl (82.0-101.0); MEAN PLATELET VOLUME 11.3 fl (7.4-10.4); MONOCYTE # 1.2 10^3/ul (0.3-0.9); MONOCYTES % 11.8 % (0.0-11.0); NEUTROPHIL # 6.7 10^3/ul (1.6-7.5); NEUTROPHILS % 65.1 % (39.0-77.0); PLATELET COUNT 184 10^3/UL (140-415); RED BLOOD COUNT 4.63 10^6/ul (4.70-6.10); RED CELL DISTRIBUTION WIDTH 13.6 % (11.5-14.5)
[2018-04-02 06:48] LABS: WHITE BLOOD COUNT 10.3 10^3/ul (4.8-10.8)
[2018-04-02 07:40] LABS: MAGNESIUM 1.8 mg/dl (1.7-2.5)
[2018-04-02 07:40] LABS: PHOSPHORUS 2.4 mg/dl (2.5-4.9)
[2018-04-02 07:42] LABS: ALANINE AMINOTRANSFERASE 25 IU/L (13-69); ALBUMIN 3.6 g/dl (3.3-4.9); ALBUMIN/GLOBULIN RATIO 1.44; ALKALINE PHOSPHATASE 52 IU/L (42-121); ANION GAP 11 (8-16); ASPARTATE AMINO TRANSFERASE 17 IU/L (15-46); BILIRUBIN,INDIRECT 1.1 mg/dl (0-1.1); BILIRUBIN,TOTAL 1.1 mg/dl (0.2-1.3); BLOOD UREA NITROGEN 15 mg/dl (7-20); CALCIUM 8.7 mg/dl (8.4-10.2); CARBON DIOXIDE 27 mmol/L (21-31); CHLORIDE 104 mmol/L (97-110); CREATININE 1.17 mg/dl (0.61-1.24); GLUCOSE 98 mg/dl (70-220); POTASSIUM 3.1 mmol/L (3.5-5.1); SODIUM 139 mmol/L (135-144); TOTAL PROTEIN 6.1 g/dl (6.1-8.1)
[2018-04-02] MEDS: DILTIAZEM (CD) 120 MG CAP PO ×2 (09:00→12:18)
[2018-04-02] MEDS: SUCRALFATE (100 MG/ML) 10ML CUP PO ×2 (09:05→12:18)
[2018-04-02] MEDS: predniSONE 5 MG TAB PO (09:05)
[2018-04-02] MEDS: MYCOPHENOLATE (SR) 180 MG TAB PO (09:06)
[2018-04-02] MEDS: AMLODIPINE 5 MG TAB PO (09:06)
[2018-04-02] MEDS: TACROLIMUS 0.5 MG CAP PO (09:06)
[2018-04-02] MEDS: POTASSIUM CHLORIDE (SR) 20 MEQ TAB PO (09:15)
[2018-04-02] MEDS: MAGNESIUM SULFATE 2 GM/50 ML 50 ML IVPB (10:16)
[2018-04-02 14:30] LABS: POTASSIUM 3.8 mmol/L (3.5-5.1)
[2018-04-09 14:05] LABS: CREATININE, RANDOM URINE 82 mg/dL (20-370); MICROALBUMIN 5.8 mg/dL; MICROALBUMIN/CREATININE RATIO 71 (<30)
[2018-04-09 14:06] LABS: PROCALCITONIN <0.10 ng/mL (<0.10)
== END 2018-04-02 17:20 | disposition home or self-care (01) | DRG 380 ==
LOC: E/R 11:52 → 6WM 13:45
PROC: 02HV33Z Insertion of Infusion Device into Superior Vena Cava, Percutaneous Approach (ICD-10-PCS; principal; 2018-03-30)
DX: K22.10 Ulcer of esophagus without bleeding (principal); R65.11 Systemic inflammatory response syndrome (SIRS) of non-infectious origin with acute organ dysfunction; N17.9 Acute kidney failure, unspecified; Z94.0 Kidney transplant status; Z94.83 Pancreas transplant status; E87.6 Hypokalemia; E83.42 Hypomagnesemia; I12.9 Hypertensive chronic kidney disease with stage 1 through stage 4 chronic kidney disease, or unspecified chronic kidney disease; N18.9 Chronic kidney disease, unspecified; I48.0 Paroxysmal atrial fibrillation; F41.9 Anxiety disorder, unspecified; Z79.899 Other long term (current) drug therapy
CPT/HCPCS: 36569; 71045; 76937; 80048; 80053; 80307; 81003; 82043; 82962; 83605; 83690; 83735; 84100; 84132; 84145; 84155; 84300; 84484; 85025; 93005; 93306; 96374; 96375; 99285-25

== ENCOUNTER 2018-11-27 21:16 | Inpatient (IN) | payer MEDICARE, OTHER ==
[2018-11-27] MEDS: ONDANSETRON 4 MG INJ IV (22:21)
[2018-11-27] MEDS: SOD CHLORIDE 0.9% 1,000 ML IV (22:22)
[2018-11-27] MEDS: morphine 4 MG/ML VIAL IV (22:22)
[2018-11-27 22:30] LABS: ADD MAN DIFF? NO
[2018-11-27 22:33] LABS: WHITE BLOOD COUNT 17.2 10^3/ul (4.8-10.8)
[2018-11-27 22:33] LABS: ABNORMAL IP MESSAGE 1; BASOPHIL # 0.1 10^3/ul (0.0-0.1); BASOPHILS % 0.4 % (0.0-2.0); EOSINOPHILS % 0.1 % (0.0-7.0); HEMATOCRIT 42.5 % (42.0-52.0); HEMOGLOBIN 14.1 g/dl (14.0-18.0); LYMPHOCYTES # 1.1 10^3/ul (0.8-2.9); LYMPHOCYTES % 6.2 % (15.0-51.0); MEAN CORPUSCULAR HEMOGLOBIN 31.3 pg (29.0-33.0); MEAN CORPUSCULAR HGB CONC 33.2 g/dl (32.0-37.0); MEAN CORPUSCULAR VOLUME 94.2 fl (82.0-101.0); MEAN PLATELET VOLUME 10.8 fl (7.4-10.4); MONOCYTE # 1.6 10^3/ul (0.3-0.9); MONOCYTES % 9.5 % (0.0-11.0); NEUTROPHIL # 14.3 10^3/ul (1.6-7.5); PLATELET COUNT 192 10^3/UL (140-415); POSITIVE DIFF @See below; RED BLOOD COUNT 4.51 10^6/ul (4.70-6.10)
[2018-11-27 22:55] LABS: ALANINE AMINOTRANSFERASE 21 IU/L (13-69); ALBUMIN 4.3 g/dl (3.3-4.9); ALBUMIN/GLOBULIN RATIO 1.65; ALKALINE PHOSPHATASE 57 IU/L (42-121); ANION GAP 14 (5-13); ASPARTATE AMINO TRANSFERASE 17 IU/L (15-46); BILIRUBIN,INDIRECT 0.6 mg/dl (0-1.1); BILIRUBIN,TOTAL 0.6 mg/dl (0.2-1.3); BLOOD UREA NITROGEN 24 mg/dl (7-20); CARBON DIOXIDE 24 mmol/L (21-31); CHLORIDE 106 mmol/L (97-110); Estimated GFR 23 mL/min (>60); GLUCOSE 132 mg/dl (70-220); LIPASE 21 U/L (23-300); POTASSIUM 3.7 mmol/L (3.5-5.1); SODIUM 144 mmol/L (135-144); TOTAL PROTEIN 6.9 g/dl (6.1-8.1)
[2018-11-28] MEDS ORDERED: LORAZEPAM 2 MG INJ (01:43)
[2018-11-28] MEDS: SOD CHLORIDE 0.9% 1,000 ML IV ×3 (01:45→14:43)
[2018-11-28] MEDS: ONDANSETRON 4 MG INJ IV ×4 (01:45→20:21)
[2018-11-28] MEDS: LORAZEPAM 2 MG INJ IV (01:55)
[2018-11-28 05:26] LABS: WHITE BLOOD COUNT 15.6 10^3/ul (4.8-10.8)
[2018-11-28 05:26] LABS: ADD MAN DIFF? NO; BASOPHIL # 0.1 10^3/ul (0.0-0.1); BASOPHILS % 0.3 % (0.0-2.0); HEMATOCRIT 41.1 % (42.0-52.0); HEMOGLOBIN 13.5 g/dl (14.0-18.0); LYMPHOCYTES # 1.2 10^3/ul (0.8-2.9); LYMPHOCYTES % 7.8 % (15.0-51.0); MEAN CORPUSCULAR HEMOGLOBIN 30.6 pg (29.0-33.0); MEAN CORPUSCULAR HGB CONC 32.8 g/dl (32.0-37.0); MEAN CORPUSCULAR VOLUME 93.2 fl (82.0-101.0); MEAN PLATELET VOLUME 10.9 fl (7.4-10.4); MONOCYTES % 6.6 % (0.0-11.0); NEUTROPHIL # 13.2 10^3/ul (1.6-7.5); NEUTROPHILS % 84.6 % (39.0-77.0); PLATELET COUNT 203 10^3/UL (140-415); RED BLOOD COUNT 4.41 10^6/ul (4.70-6.10); RED CELL DISTRIBUTION WIDTH 14.3 % (11.5-14.5)
[2018-11-28] MEDS: morphine 2 MG INJ IV (05:47)
[2018-11-28] MEDS: PANTOPRAZOLE (EC) 40 MG TAB PO (06:00)
[2018-11-28 06:15] LABS: ALANINE AMINOTRANSFERASE 22 IU/L (13-69); ALBUMIN 4.2 g/dl (3.3-4.9); ALBUMIN/GLOBULIN RATIO 1.61; ALKALINE PHOSPHATASE 53 IU/L (42-121); ANION GAP 14 (5-13); ASPARTATE AMINO TRANSFERASE 18 IU/L (15-46); BILIRUBIN,INDIRECT 0.5 mg/dl (0-1.1); BILIRUBIN,TOTAL 0.5 mg/dl (0.2-1.3); BLOOD UREA NITROGEN 25 mg/dl (7-20); CALCIUM 9.5 mg/dl (8.4-10.2); CARBON DIOXIDE 24 mmol/L (21-31); CHLORIDE 107 mmol/L (97-110); CREATININE 2.38 mg/dl (0.61-1.24); Estimated GFR 29 mL/min (>60); GLUCOSE 130 mg/dl (70-220); POTASSIUM 3.9 mmol/L (3.5-5.1); SODIUM 145 mmol/L (135-144); TOTAL PROTEIN 6.8 g/dl (6.1-8.1)
[2018-11-28] MEDS: TACROLIMUS 1 MG CAP PO ×2 (08:33→20:22)
[2018-11-28] MEDS: MYCOPHENOLATE (SR) 180 MG TAB PO ×2 (08:33→20:22)
[2018-11-28] MEDS: predniSONE 5 MG TAB PO (08:33)
[2018-11-28] MEDS: AMLODIPINE 10 MG TAB PO (08:33)
[2018-11-28] MEDS: ALPRAZOLAM 1 MG TAB PO (08:39)
[2018-11-28 15:23] LABS: ANION GAP 11 (5-13); BLOOD UREA NITROGEN 25 mg/dl (7-20); CALCIUM 9.6 mg/dl (8.4-10.2); CARBON DIOXIDE 24 mmol/L (21-31); CHLORIDE 109 mmol/L (97-110); CREATININE 2.22 mg/dl (0.61-1.24); Estimated GFR 31 mL/min (>60); GLUCOSE 108 mg/dl (70-220); POTASSIUM 4.1 mmol/L (3.5-5.1); SODIUM 144 mmol/L (135-144)
[2018-11-28] MEDS: PANTOPRAZOLE 40 MG INJ IV (17:26)
[2018-11-28] MEDS: PROCHLORPERAZINE 10 MG INJ IV (20:21)
[2018-11-29] MEDS: SOD CHLORIDE 0.9% 1,000 ML IV ×3 (00:29→21:17)
[2018-11-29] MEDS: ALPRAZOLAM 1 MG TAB PO (01:29)
[2018-11-29] MEDS: ONDANSETRON 4 MG INJ IV ×2 (01:38→09:39)
[2018-11-29] MEDS: PROCHLORPERAZINE 10 MG INJ IV (04:15)
[2018-11-29] MEDS: morphine 2 MG INJ IV ×2 (04:25→12:33)
[2018-11-29] MEDS: PANTOPRAZOLE 40 MG INJ IV ×2 (04:27→18:53)
[2018-11-29 05:23] LABS: ADD MAN DIFF? NO
[2018-11-29 05:26] LABS: BASOPHILS % 0.3 % (0.0-2.0); EOSINOPHILS % 0.1 % (0.0-7.0); HEMATOCRIT 41.8 % (42.0-52.0); HEMOGLOBIN 13.7 g/dl (14.0-18.0); LYMPHOCYTES # 1.7 10^3/ul (0.8-2.9); LYMPHOCYTES % 13.2 % (15.0-51.0); MEAN CORPUSCULAR HEMOGLOBIN 30.7 pg (29.0-33.0); MEAN CORPUSCULAR HGB CONC 32.8 g/dl (32.0-37.0); MEAN CORPUSCULAR VOLUME 93.7 fl (82.0-101.0); MEAN PLATELET VOLUME 10.9 fl (7.4-10.4); NEUTROPHIL # 10.1 10^3/ul (1.6-7.5); NEUTROPHILS % 77.7 % (39.0-77.0); PLATELET COUNT 181 10^3/UL (140-415); RED BLOOD COUNT 4.46 10^6/ul (4.70-6.10); RED CELL DISTRIBUTION WIDTH 14.3 % (11.5-14.5)
[2018-11-29 06:05] LABS: ANION GAP 13 (5-13); BLOOD UREA NITROGEN 21 mg/dl (7-20); CALCIUM 9.3 mg/dl (8.4-10.2); CARBON DIOXIDE 24 mmol/L (21-31); CHLORIDE 107 mmol/L (97-110); CREATININE 1.68 mg/dl (0.61-1.24); Estimated GFR 43 mL/min (>60); GLUCOSE 98 mg/dl (70-220); MAGNESIUM 1.3 mg/dl (1.7-2.5); PHOSPHORUS 2.8 mg/dl (2.5-4.9); POTASSIUM 3.6 mmol/L (3.5-5.1); SODIUM 144 mmol/L (135-144)
[2018-11-29 06:20] LABS: ADD UMIC YES; UR ASCORBIC ACID NEGATIVE (NEGATIVE); UR BILIRUBIN (Dip) NEGATIVE (NEGATIVE); UR BLOOD (Dip) 1+ mg/dL (NEGATIVE); UR CLARITY CLEAR (CLEAR); UR COLOR COLORLESS (YELLOW); UR GLUCOSE (Dip) NEGATIVE (NEGATIVE); UR KETONES (Dip) TRACE mg/dL (NEGATIVE); UR LEUKOCYTE ESTERASE (Dip) NEGATIVE Leu/ul (NEGATIVE); UR NITRITE (Dip) NEGATIVE (NEGATIVE); UR RBC 0 /HPF (0-5); UR SPECIFIC GRAVITY (Dip) 1.005 (1.003-1.030); UR TOTAL PROTEIN (Dip) NEGATIVE (NEGATIVE); UR UROBILINOGEN (Dip) NEGATIVE (NEGATIVE); UR WBC 0 /HPF (0-5)
[2018-11-29 06:50] LABS: SODIUM,URINE RANDOM 109 mmol/L (30-90)
[2018-11-29 06:50] LABS: CREATININE,URINE RANDOM 17.06 mg/dl (20-370)
[2018-11-29] MEDS: predniSONE 5 MG TAB PO (09:38)
[2018-11-29] MEDS: TACROLIMUS 1 MG CAP PO ×2 (09:38→21:16)
[2018-11-29] MEDS: MYCOPHENOLATE (SR) 180 MG TAB PO ×2 (09:38→21:16)
[2018-11-29] MEDS: AMLODIPINE 10 MG TAB PO (09:39)
[2018-11-29] MEDS: MAGNESIUM SULFATE 2 GM/50 ML 50 ML IVPB (12:33)
[2018-11-29] MEDS: SUCRALFATE (100 MG/ML) 10ML CUP PO ×3 (13:00→21:16)
[2018-11-29] MEDS ORDERED: ONDANSETRON 4 MG INJ IV (17:00)
[2018-11-29] MEDS: METOCLOPRAMIDE 10 MG INJ IV (18:11)
[2018-11-29] MEDS: PROPOFOL 20 ML (18:57)
[2018-11-29] MEDS: LIDOCAINE 2% (SDV) 5 ML INJ (18:57)
[2018-11-30] MEDS: METOCLOPRAMIDE 10 MG INJ IV ×4 (00:45→17:31)
[2018-11-30 05:01] LABS: ADD MAN DIFF? NO
[2018-11-30 05:05] LABS: BASOPHIL # 0.1 10^3/ul (0.0-0.1); BASOPHILS % 0.5 % (0.0-2.0); EOSINOPHILS % 0.1 % (0.0-7.0); HEMATOCRIT 41.7 % (42.0-52.0); HEMOGLOBIN 13.7 g/dl (14.0-18.0); LYMPHOCYTES # 2.4 10^3/ul (0.8-2.9); LYMPHOCYTES % 21.6 % (15.0-51.0); MEAN CORPUSCULAR HEMOGLOBIN 30.8 pg (29.0-33.0); MEAN CORPUSCULAR HGB CONC 32.9 g/dl (32.0-37.0); MEAN CORPUSCULAR VOLUME 93.7 fl (82.0-101.0); MEAN PLATELET VOLUME 10.8 fl (7.4-10.4); MONOCYTE # 1.2 10^3/ul (0.3-0.9); MONOCYTES % 10.9 % (0.0-11.0); NEUTROPHIL # 7.2 10^3/ul (1.6-7.5); NEUTROPHILS % 66.3 % (39.0-77.0); PLATELET COUNT 191 10^3/UL (140-415); RED BLOOD COUNT 4.45 10^6/ul (4.70-6.10); RED CELL DISTRIBUTION WIDTH 13.7 % (11.5-14.5)
[2018-11-30 05:05] LABS: WHITE BLOOD COUNT 10.9 10^3/ul (4.8-10.8)
[2018-11-30 05:51] LABS: ANION GAP 12 (5-13); BLOOD UREA NITROGEN 19 mg/dl (7-20); CALCIUM 9.2 mg/dl (8.4-10.2); CARBON DIOXIDE 23 mmol/L (21-31); CHLORIDE 107 mmol/L (97-110); Estimated GFR 53 mL/min (>60); GLUCOSE 94 mg/dl (70-220); MAGNESIUM 1.7 mg/dl (1.7-2.5); POTASSIUM 3.4 mmol/L (3.5-5.1); SODIUM 142 mmol/L (135-144)
[2018-11-30] MEDS: PANTOPRAZOLE 40 MG INJ IV ×2 (05:53→17:30)
[2018-11-30] MEDS: SOD CHLORIDE 0.9% 1,000 ML IV (06:00)
[2018-11-30] MEDS: SUCRALFATE (100 MG/ML) 10ML CUP PO ×4 (09:34→20:44)
[2018-11-30] MEDS: predniSONE 5 MG TAB PO (09:34)
[2018-11-30] MEDS: AMLODIPINE 10 MG TAB PO (09:35)
[2018-11-30] MEDS: MYCOPHENOLATE (SR) 180 MG TAB PO ×2 (09:35→20:45)
[2018-11-30] MEDS: TACROLIMUS 1 MG CAP PO ×2 (09:35→20:44)
[2018-11-30] MEDS: POTASSIUM CHLORIDE (SR) 20 MEQ TAB PO (09:41)
[2018-11-30 14:23] LABS: CREATININE, RANDOM URINE 18 mg/dL (20-320); MICROALBUMIN 1.9 mg/dL; MICROALBUMIN/CREATININE RATIO 106 (<30)
[2018-12-01] MEDS: METOCLOPRAMIDE 10 MG INJ IV ×3 (00:26→13:08)
[2018-12-01 05:19] LABS: ADD MAN DIFF? NO
[2018-12-01 05:32] LABS: WHITE BLOOD COUNT 7.4 10^3/ul (4.8-10.8)
[2018-12-01 05:32] LABS: BASOPHILS % 0.4 % (0.0-2.0); EOSINOPHILS % 0.3 % (0.0-7.0); HEMATOCRIT 41.8 % (42.0-52.0); HEMOGLOBIN 13.9 g/dl (14.0-18.0); LYMPHOCYTES # 1.6 10^3/ul (0.8-2.9); LYMPHOCYTES % 21.1 % (15.0-51.0); MEAN CORPUSCULAR HEMOGLOBIN 30.9 pg (29.0-33.0); MEAN CORPUSCULAR HGB CONC 33.3 g/dl (32.0-37.0); MEAN CORPUSCULAR VOLUME 92.9 fl (82.0-101.0); MEAN PLATELET VOLUME 10.8 fl (7.4-10.4); MONOCYTE # 0.8 10^3/ul (0.3-0.9); MONOCYTES % 11.1 % (0.0-11.0); NEUTROPHIL # 4.9 10^3/ul (1.6-7.5); NEUTROPHILS % 66.4 % (39.0-77.0); PLATELET COUNT 183 10^3/UL (140-415); RED CELL DISTRIBUTION WIDTH 13.2 % (11.5-14.5)
[2018-12-01] MEDS: PANTOPRAZOLE 40 MG INJ IV (05:50)
[2018-12-01] MEDS: SOD CHLORIDE 0.9% 1,000 ML IV (05:57)
[2018-12-01 06:12] LABS: ANION GAP 10 (5-13); BLOOD UREA NITROGEN 17 mg/dl (7-20); CALCIUM 9.3 mg/dl (8.4-10.2); CARBON DIOXIDE 27 mmol/L (21-31); CHLORIDE 105 mmol/L (97-110); CREATININE 1.21 mg/dl (0.61-1.24); Estimated GFR > 60 mL/min (>60); GLUCOSE 88 mg/dl (70-220); MAGNESIUM 1.5 mg/dl (1.7-2.5); PHOSPHORUS 2.6 mg/dl (2.5-4.9); POTASSIUM 3.4 mmol/L (3.5-5.1); SODIUM 142 mmol/L (135-144)
[2018-12-01] MEDS: MYCOPHENOLATE (SR) 180 MG TAB PO (09:56)
[2018-12-01] MEDS: TACROLIMUS 1 MG CAP PO (09:56)
[2018-12-01] MEDS: SUCRALFATE (100 MG/ML) 10ML CUP PO ×2 (09:56→13:08)
[2018-12-01] MEDS: POTASSIUM CHLORIDE (SR) 20 MEQ TAB PO (09:56)
[2018-12-01] MEDS: AMLODIPINE 10 MG TAB PO (09:57)
[2018-12-01] MEDS: predniSONE 5 MG TAB PO (09:57)
[2018-12-01] MEDS: MAGNESIUM SULFATE 2 GM/50 ML 50 ML IVPB (09:58)
== END 2018-12-01 15:20 | disposition home or self-care (01) | DRG 381 ==
LOC: MS1 11-28 01:28 → E/R 21:16
PROC: 0DB68ZX Excision of Stomach, Via Natural or Artificial Opening Endoscopic, Diagnostic (ICD-10-PCS; principal; 2018-11-29 15:20)
DX: K22.10 Ulcer of esophagus without bleeding (principal); N17.9 Acute kidney failure, unspecified; Z94.83 Pancreas transplant status; Z94.0 Kidney transplant status; T86.891 Other transplanted tissue failure; R65.10 Systemic inflammatory response syndrome (SIRS) of non-infectious origin without acute organ dysfunction; K29.70 Gastritis, unspecified, without bleeding; G43.A0 Cyclical vomiting, in migraine, not intractable; F12.90 Cannabis use, unspecified, uncomplicated; R00.0 Tachycardia, unspecified; F41.9 Anxiety disorder, unspecified; I10 Essential (primary) hypertension; K44.9 Diaphragmatic hernia without obstruction or gangrene; Z79.52 Long term (current) use of systemic steroids
CPT/HCPCS: 74176; 78264; 80048; 80053; 81001; 81003; 82043; 83690; 83735; 84100; 84155; 84300; 85025; 88305; 88312; 96374; 96375; 99285-25

== ENCOUNTER 2018-12-19 11:11 | Emergency (ER) | payer MEDICARE, OTHER ==
[2018-12-19] MEDS: FAMOTIDINE 20 MG INJ IV (12:50)
[2018-12-19] MEDS: METOCLOPRAMIDE 10 MG INJ IV (12:50)
[2018-12-19] MEDS: LORAZEPAM 2 MG INJ IV (12:50)
[2018-12-19] MEDS: SOD CHLORIDE 0.9% 1,000 ML IV (12:51)
[2018-12-19 13:01] LABS: ADD MAN DIFF? NO
[2018-12-19 13:02] LABS: WHITE BLOOD COUNT 16.4 10^3/ul (4.8-10.8)
[2018-12-19 13:02] LABS: BASOPHIL # 0.1 10^3/ul (0.0-0.1); BASOPHILS % 0.4 % (0.0-2.0); EOSINOPHILS % 0.2 % (0.0-7.0); LYMPHOCYTES # 2.4 10^3/ul (0.8-2.9); LYMPHOCYTES % 14.8 % (15.0-51.0); MEAN CORPUSCULAR HEMOGLOBIN 30.6 pg (29.0-33.0); MEAN CORPUSCULAR HGB CONC 33.3 g/dl (32.0-37.0); MEAN CORPUSCULAR VOLUME 91.8 fl (82.0-101.0); MEAN PLATELET VOLUME 10.3 fl (7.4-10.4); MONOCYTE # 1.2 10^3/ul (0.3-0.9); MONOCYTES % 7.1 % (0.0-11.0); NEUTROPHIL # 12.6 10^3/ul (1.6-7.5); NEUTROPHILS % 76.8 % (39.0-77.0); PLATELET COUNT 294 10^3/UL (140-415); RED BLOOD COUNT 5.23 10^6/ul (4.70-6.10)
[2018-12-19 13:26] LABS: ALANINE AMINOTRANSFERASE 30 IU/L (13-69); ALBUMIN 4.7 g/dl (3.3-4.9); ALBUMIN/GLOBULIN RATIO 1.46; ALKALINE PHOSPHATASE 77 IU/L (42-121); ANION GAP 14 (5-13); ASPARTATE AMINO TRANSFERASE 17 IU/L (15-46); BILIRUBIN,INDIRECT 0.5 mg/dl (0-1.1); BILIRUBIN,TOTAL 0.5 mg/dl (0.2-1.3); BLOOD UREA NITROGEN 21 mg/dl (7-20); CALCIUM 10.9 mg/dl (8.4-10.2); CARBON DIOXIDE 26 mmol/L (21-31); CHLORIDE 102 mmol/L (97-110); CREATININE 3.12 mg/dl (0.61-1.24); Estimated GFR 21 mL/min (>60); GLUCOSE 122 mg/dl (70-220); LIPASE 25 U/L (23-300); POTASSIUM 3.8 mmol/L (3.5-5.1); SODIUM 142 mmol/L (135-144); TOTAL PROTEIN 7.9 g/dl (6.1-8.1)
[2018-12-19] MEDS ORDERED: SOD CHLORIDE 0.9% 1,000 ML IV (13:44)
[2018-12-19] MEDS: SOD CHLORIDE 0.9% 1,500 ML IV (13:53)
== END 2018-12-19 15:58 | disposition home or self-care (01) ==
LOC: FTE 11:11
DX: R11.10 Vomiting, unspecified (principal); I10 Essential (primary) hypertension; N28.9 Disorder of kidney and ureter, unspecified
CPT/HCPCS: 36415; 80053; 83690; 85025; 93005; 96361; 96374; 96375; 99284-25

== ENCOUNTER 2019-04-25 09:41 | Inpatient (IN) | payer MEDICARE, OTHER ==
[2019-04-25 13:34] LABS: ADD MAN DIFF? NO
[2019-04-25 13:36] LABS: BASOPHIL # 0.1 10^3/ul (0.0-0.1); BASOPHILS % 0.6 % (0.0-2.0); EOSINOPHILS # 0.1 10^3/ul (0.0-0.5); EOSINOPHILS % 1.3 % (0.0-7.0); HEMATOCRIT 43.1 % (42.0-52.0); HEMOGLOBIN 14.3 g/dl (14.0-18.0); LYMPHOCYTES # 1.9 10^3/ul (0.8-2.9); LYMPHOCYTES % 18.3 % (15.0-51.0); MEAN CORPUSCULAR HEMOGLOBIN 31.7 pg (29.0-33.0); MEAN CORPUSCULAR HGB CONC 33.2 g/dl (32.0-37.0); MEAN CORPUSCULAR VOLUME 95.6 fl (82.0-101.0); MEAN PLATELET VOLUME 11.4 fl (7.4-10.4); MONOCYTE # 0.7 10^3/ul (0.3-0.9); MONOCYTES % 6.5 % (0.0-11.0); NEUTROPHIL # 7.7 10^3/ul (1.6-7.5); NEUTROPHILS % 72.8 % (39.0-77.0); PLATELET COUNT 184 10^3/UL (140-415); RED BLOOD COUNT 4.51 10^6/ul (4.70-6.10); RED CELL DISTRIBUTION WIDTH 14.5 % (11.5-14.5)
[2019-04-25 13:36] LABS: WHITE BLOOD COUNT 10.5 10^3/ul (4.8-10.8)
[2019-04-25 13:56] LABS: ALANINE AMINOTRANSFERASE 28 IU/L (13-69); ALBUMIN/GLOBULIN RATIO 1.48; ALKALINE PHOSPHATASE 48 IU/L (42-121); ANION GAP 8 (5-13); ASPARTATE AMINO TRANSFERASE 36 IU/L (15-46); BILIRUBIN,INDIRECT 0.7 mg/dl (0-1.1); BILIRUBIN,TOTAL 0.7 mg/dl (0.2-1.3); BLOOD UREA NITROGEN 17 mg/dl (7-20); CALCIUM 9.3 mg/dl (8.4-10.2); CARBON DIOXIDE 20 mmol/L (21-31); CHLORIDE 111 mmol/L (97-110); CREATININE 1.38 mg/dl (0.61-1.24); Estimated GFR 54 mL/min (>60); GLUCOSE 120 mg/dl (70-220); LIPASE 108 U/L (23-300); POTASSIUM 4.2 mmol/L (3.5-5.1); SODIUM 139 mmol/L (135-144); TOTAL PROTEIN 6.7 g/dl (6.1-8.1)
[2019-04-25 14:08] LABS: TROPONIN-I 0.026 ng/ml (0.000-0.120)
[2019-04-25] MEDS: SOD CHLORIDE 0.9% 1,000 ML IV ×2 (14:27→20:01)
[2019-04-25 15:20] LABS: ADD UMIC NO; UR ASCORBIC ACID NEGATIVE (NEGATIVE); UR BILIRUBIN (Dip) NEGATIVE (NEGATIVE); UR BLOOD (Dip) NEGATIVE (NEGATIVE); UR CLARITY CLEAR (CLEAR); UR COLOR YELLOW (YELLOW); UR GLUCOSE (Dip) NEGATIVE (NEGATIVE); UR KETONES (Dip) NEGATIVE (NEGATIVE); UR LEUKOCYTE ESTERASE (Dip) NEGATIVE Leu/ul (NEGATIVE); UR NITRITE (Dip) NEGATIVE (NEGATIVE); UR SPECIFIC GRAVITY (Dip) 1.014 (1.003-1.030); UR TOTAL PROTEIN (Dip) NEGATIVE (NEGATIVE); UR UROBILINOGEN (Dip) NEGATIVE (NEGATIVE)
[2019-04-25 15:32] LABS: INR 1.11; PROTIME 14.4 Sec (11.9-14.9); PT RATIO 1.1
[2019-04-25] MEDS ORDERED: ALPRAZOLAM 1 MG TAB PO (16:30)
[2019-04-25] MEDS: LACTATED RINGER'S 1,000 ML IV (16:58)
[2019-04-25] MEDS: METOPROLOL 50 MG TAB PO (22:02)
[2019-04-25] MEDS: PANTOPRAZOLE (EC) 40 MG TAB PO (22:02)
[2019-04-25] MEDS: ASPIRIN 81 MG TAB PO (22:02)
[2019-04-25] MEDS: MYCOPHENOLATE (SR) 180 MG TAB PO (22:03)
[2019-04-25] MEDS: DILTIAZEM (CD) 120 MG CAP PO (22:03)
[2019-04-25] MEDS: MIRTAZAPINE 15 MG TAB PO (22:03)
[2019-04-25] MEDS: TACROLIMUS 1 MG CAP PO (22:03)
[2019-04-25] MEDS: predniSONE 5 MG TAB PO (22:03)
[2019-04-26 05:39] LABS: ADD MAN DIFF? NO
[2019-04-26 05:41] LABS: WHITE BLOOD COUNT 9.1 10^3/ul (4.8-10.8)
[2019-04-26 05:41] LABS: BASOPHIL # 0.1 10^3/ul (0.0-0.1); BASOPHILS % 0.6 % (0.0-2.0); EOSINOPHILS # 0.1 10^3/ul (0.0-0.5); EOSINOPHILS % 1.3 % (0.0-7.0); HEMOGLOBIN 13.2 g/dl (14.0-18.0); LYMPHOCYTES % 21.8 % (15.0-51.0); MEAN CORPUSCULAR HGB CONC 33.8 g/dl (32.0-37.0); MEAN CORPUSCULAR VOLUME 94.7 fl (82.0-101.0); MEAN PLATELET VOLUME 11.4 fl (7.4-10.4); MONOCYTE # 0.7 10^3/ul (0.3-0.9); MONOCYTES % 7.3 % (0.0-11.0); NEUTROPHIL # 6.2 10^3/ul (1.6-7.5); NEUTROPHILS % 68.4 % (39.0-77.0); PLATELET COUNT 205 10^3/UL (140-415); RED BLOOD COUNT 4.12 10^6/ul (4.70-6.10); RED CELL DISTRIBUTION WIDTH 14.5 % (11.5-14.5)
[2019-04-26 05:57] LABS: ANION GAP 4 (5-13); BLOOD UREA NITROGEN 18 mg/dl (7-20); CALCIUM 8.7 mg/dl (8.4-10.2); CARBON DIOXIDE 23 mmol/L (21-31); CHLORIDE 113 mmol/L (97-110); CREATININE 1.25 mg/dl (0.61-1.24); Estimated GFR > 60 mL/min (>60); GLUCOSE 103 mg/dl (70-220); MAGNESIUM 1.5 mg/dl (1.7-2.5); PHOSPHORUS 2.6 mg/dl (2.5-4.9); SODIUM 140 mmol/L (135-144)
[2019-04-26 06:03] LABS: POTASSIUM 2.9 mmol/L (3.5-5.1)
[2019-04-26] MEDS: POTASSIUM CHLORIDE (SR) 20 MEQ TAB PO (07:02)
[2019-04-26] MEDS: MYCOPHENOLATE (SR) 180 MG TAB PO ×2 (08:41→20:20)
[2019-04-26] MEDS: PANTOPRAZOLE (EC) 40 MG TAB PO ×2 (08:41→20:20)
[2019-04-26] MEDS: DILTIAZEM (CD) 120 MG CAP PO ×2 (08:41→20:20)
[2019-04-26] MEDS: TACROLIMUS 1 MG CAP PO ×2 (08:42→20:20)
[2019-04-26] MEDS: METOPROLOL 50 MG TAB PO ×2 (08:42→20:20)
[2019-04-26] MEDS: predniSONE 5 MG TAB PO ×2 (08:42→20:19)
[2019-04-26] MEDS: ASPIRIN 81 MG TAB PO ×2 (08:42→20:20)
[2019-04-26] MEDS: MAGNESIUM SULFATE 2 GM/50 ML 50 ML IVPB (09:22)
[2019-04-26] MEDS: VANCOMYCIN HCL 250 MG/5ML POSYG PO ×3 (10:55→23:45)
[2019-04-26] MEDS: SOD CHLORIDE 0.9% 1,000 ML IV ×2 (12:30→17:03)
[2019-04-26 12:57] LABS: PROCALCITONIN < 0.02 ng/mL (0.00-0.10)
[2019-04-26] MEDS: MIRTAZAPINE 15 MG TAB PO (20:20)
[2019-04-27 05:31] LABS: ANION GAP 4 (5-13); BLOOD UREA NITROGEN 18 mg/dl (7-20); CALCIUM 8.7 mg/dl (8.4-10.2); CARBON DIOXIDE 22 mmol/L (21-31); CHLORIDE 115 mmol/L (97-110); Estimated GFR > 60 mL/min (>60); GLUCOSE 106 mg/dl (70-220); MAGNESIUM 1.6 mg/dl (1.7-2.5); PHOSPHORUS 2.5 mg/dl (2.5-4.9); SODIUM 141 mmol/L (135-144)
[2019-04-27] MEDS: VANCOMYCIN HCL 250 MG/5ML POSYG PO ×3 (05:55→17:20)
[2019-04-27 06:04] LABS: POTASSIUM 2.9 mmol/L (3.5-5.1)
[2019-04-27] MEDS: POTASSIUM CHLORIDE (SR) 20 MEQ TAB PO (06:59)
[2019-04-27] MEDS: PANTOPRAZOLE (EC) 40 MG TAB PO ×2 (08:23→20:38)
[2019-04-27] MEDS: METOPROLOL 50 MG TAB PO ×2 (08:23→20:38)
[2019-04-27] MEDS: predniSONE 5 MG TAB PO ×2 (08:23→20:38)
[2019-04-27] MEDS: TACROLIMUS 1 MG CAP PO ×2 (08:23→20:37)
[2019-04-27] MEDS: DILTIAZEM (CD) 120 MG CAP PO ×2 (08:23→20:38)
[2019-04-27] MEDS: ASPIRIN 81 MG TAB PO ×2 (08:23→20:38)
[2019-04-27] MEDS: SOD CHLORIDE 0.9% 1,000 ML IV (08:24)
[2019-04-27] MEDS: MYCOPHENOLATE (SR) 180 MG TAB PO ×2 (08:24→20:37)
[2019-04-27] MEDS: MIRTAZAPINE 15 MG TAB PO (20:38)
[2019-04-28] MEDS: VANCOMYCIN HCL 250 MG/5ML POSYG PO ×3 (00:07→11:32)
[2019-04-28] MEDS: MYCOPHENOLATE (SR) 180 MG TAB PO (08:21)
[2019-04-28] MEDS: PANTOPRAZOLE (EC) 40 MG TAB PO (08:21)
[2019-04-28] MEDS: TACROLIMUS 1 MG CAP PO (08:21)
[2019-04-28] MEDS: predniSONE 5 MG TAB PO (08:21)
[2019-04-28] MEDS: ASPIRIN 81 MG TAB PO (08:21)
[2019-04-28] MEDS: METOPROLOL 50 MG TAB PO (08:22)
[2019-04-28] MEDS: DILTIAZEM (CD) 120 MG CAP PO (08:22)
[2019-04-28 10:50] LABS: ANION GAP 8 (5-13); BLOOD UREA NITROGEN 15 mg/dl (7-20); CALCIUM 9.1 mg/dl (8.4-10.2); CARBON DIOXIDE 23 mmol/L (21-31); CHLORIDE 110 mmol/L (97-110); CREATININE 1.01 mg/dl (0.61-1.24); Estimated GFR > 60 mL/min (>60); GLUCOSE 126 mg/dl (70-220); POTASSIUM 3.4 mmol/L (3.5-5.1); SODIUM 141 mmol/L (135-144)
[2019-04-28] MEDS: POTASSIUM CHLORIDE (SR) 20 MEQ TAB PO (11:32)
== END 2019-04-28 12:20 | disposition home or self-care (01) | DRG 371 ==
LOC: E/R 09:41 → 2NE 13:53
DX: A04.72 Enterocolitis due to Clostridium difficile, not specified as recurrent (principal); N18.6 End stage renal disease; Z94.83 Pancreas transplant status; I12.0 Hypertensive chronic kidney disease with stage 5 chronic kidney disease or end stage renal disease; N17.9 Acute kidney failure, unspecified; T86.12 Kidney transplant failure; D89.811 Chronic graft-versus-host disease; I48.91 Unspecified atrial fibrillation; E10.22 Type 1 diabetes mellitus with diabetic chronic kidney disease; E86.0 Dehydration; E10.42 Type 1 diabetes mellitus with diabetic polyneuropathy; E83.42 Hypomagnesemia; F41.9 Anxiety disorder, unspecified; E87.6 Hypokalemia; J44.9 Chronic obstructive pulmonary disease, unspecified; K21.9 Gastro-esophageal reflux disease without esophagitis; Y83.0 Surgical operation with transplant of whole organ as the cause of abnormal reaction of the patient, or of later complication, without mention of misadventure at the time of the procedure; Z79.82 Long term (current) use of aspirin
CPT/HCPCS: 36415; 80048; 80053; 81003; 83690; 83735; 84100; 84145; 84484; 85025; 85610; 85730; 87045; 87075; 87081; 87177; 87205; 99217; 99285-25; G0378